=== PATIENT | male | born 1985 | race Caucasian/White ===

== ENCOUNTER → 2019-09-02 | Outpatient (REF) | payer OTHER ==
[~2019-09-02] MED LIST: CARA1TAB2 PO; CELE40TA PO; IRONTAB3 PO; PRIL40CA PO; VITATAB11 PO
[2019-09-02 17:57] LABS: BASO # 0.1 10^3/uL (0.0-0.2); BASO % 0.9 % (0.0-1.0); EOS # 0.4 10^3/uL (0.0-0.5); LYMPH # 2.4 10^3/uL (1.5-5.0); LYMPH % 17.4 % (24.0-44.0); MEAN CORPUSCULAR HEMOGLOBIN 17.8 pg (27.0-33.0); MEAN CORPUSCULAR HGB CONC 26.7 g/dl (32.0-36.5); MEAN CORPUSCULAR VOLUME 66.8 fl (80.0-96.0); MONO % 7.2 % (0.0-5.0); NEUTROPHILS # 9.8 10^3/uL (1.5-8.5); PLATELET COUNT, AUTOMATED 274 10^3/uL (150-450); RED BLOOD COUNT 4.49 10^6/uL (4.30-6.10); WHITE BLOOD COUNT 13.8 10^3/uL (4.0-10.0)
[2019-09-02 18:33] LABS: ALBUMIN 4.3 GM/DL (3.2-5.2); ALT/SGPT 18 U/L (12-78); BILIRUBIN,TOTAL 0.5 MG/DL (0.2-1.0); BLOOD UREA NITROGEN 18 MG/DL (7-18); CALCIUM LEVEL 8.9 MG/DL (8.5-10.1); CARBON DIOXIDE LEVEL 28 MEQ/L (21-32); CHLORIDE LEVEL 109 MEQ/L (98-107); CREATININE FOR GFR 0.75 MG/DL (0.70-1.30); FERRITIN 3 NG/ML (26-388); FOLATE 4.7 NG/ML; GLOMERULAR FILTRATION RATE > 60.0 (>60); GLUCOSE, FASTING 82 MG/DL (70-100); POTASSIUM SERUM 4.7 MEQ/L (3.5-5.1); SODIUM LEVEL 140 MEQ/L (136-145); TOTAL PROTEIN 7.1 GM/DL (6.4-8.2)
[2019-09-02 19:02] LABS: VITAMIN B12 LEVEL 663 PG/ML
== END ==
LOC: M SFHCLERA 14:15
PROVIDERS: ATTEND Nurse Practitioner Family
DX: Z98.84 Bariatric surgery status (principal)

== ENCOUNTER → 2019-09-10 | Outpatient (REF) | payer OTHER | LOC: M SFHCLERA 18:41 | PROVIDERS: ATTEND Physician Assistant | DX: R21 Rash and other nonspecific skin eruption (principal) ==

== ENCOUNTER 2019-09-15 07:32 | Inpatient (IN) | payer OTHER ==
[~2019-09-15] VITALS: Ht 172.7 cm; Wt 77.3 kg
[2019-09-15] MEDS ORDERED: ONDANSETRON 4MG/2ML VIAL (J2405) IV ONE (08:00)
[2019-09-15] MEDS ORDERED: NS 1,000 ML IV ONE ×2 (08:00→09:15)
[2019-09-15] MEDS ORDERED: VENL75CA47 PO (08:01)
[2019-09-15] MEDS ORDERED: BACT800T5 PO (08:01)
[2019-09-15] MEDS ORDERED: BUSP10TA PO (08:01)
[2019-09-15] MEDS ORDERED: VALA1TAB5 PO (08:01)
[2019-09-15] MEDS ORDERED: ISOVUE-370 76% 100ML VIAL (Q9967) As Ordered ONE (08:04)
[2019-09-15] MEDS: fentaNYL 100 MCG/2 ML INJECTION (J3010) IV PRN ×2 (08:14→09:24)
[2019-09-15 08:15] LABS: BASO # 0.1 10^3/uL (0.0-0.2); BASO % 1.1 % (0.0-1.0); EOS # 0.6 10^3/uL (0.0-0.5); EOS % 4.5 % (0.0-3.0); HEMATOCRIT 34.9 % (42.0-52.0); HEMOGLOBIN 9.1 g/dl (13.5-17.5); LYMPH # 3.3 10^3/uL (1.5-5.0); LYMPH % 26.6 % (24.0-44.0); MEAN CORPUSCULAR HEMOGLOBIN 17.4 pg (27.0-33.0); MEAN CORPUSCULAR HGB CONC 26.1 g/dl (32.0-36.5); MEAN CORPUSCULAR VOLUME 66.6 fl (80.0-96.0); MONO # 0.6 10^3/uL (0.0-0.8); MONO % 5.2 % (0.0-5.0); NEUTROPHILS # 7.6 10^3/uL (1.5-8.5); NEUTROPHILS % 62.3 % (36.0-66.0); PLATELET COUNT, AUTOMATED 293 10^3/uL (150-450); RED BLOOD COUNT 5.24 10^6/uL (4.30-6.10); WHITE BLOOD COUNT 12.2 10^3/uL (4.0-10.0)
[2019-09-15 08:28] LABS: INR 1.17; PROTHROMBIN TIME 14.7 SECONDS (11.8-14.0)
[2019-09-15 08:56] LABS: ALBUMIN 3.9 GM/DL (3.2-5.2); ALT/SGPT 20 U/L (12-78); BILIRUBIN,DIRECT < 0.1 MG/DL (0.0-0.2); BILIRUBIN,TOTAL 0.3 MG/DL (0.2-1.0); CK-MB VALUE MASS < 1.0 NG/ML (<3.6); CPK CREATINE PHOSPHOKINASE 71 U/L (39-308); LIPASE 177 U/L (73-393); MB/CK RELATIVE INDEX 1.41 (< OR =4); TOTAL PROTEIN 7.1 GM/DL (6.4-8.2); TROPONIN I < 0.02 NG/ML (< 0.10)
[2019-09-15] MEDS ORDERED: PIPERACILLIN/TAZOBACTAM SOD 4.5 GM in D5W MINI-BAG PLUS 50 ML IV ONE (09:15)
[2019-09-15] MEDS ORDERED: PANTOPRAZOLE 40MG INJ (PROTONIX) (C9113) IV ONE (09:15)
[2019-09-15] MEDS ORDERED: fentaNYL 100 MCG/2 ML INJECTION (J3010) IV PRN ×2 (09:30→14:45)
[2019-09-15] MEDS ORDERED: FERR240T PO (09:34)
[2019-09-15] MEDS ORDERED: LIDOCAINE 1% SDV INJ 30 ML VIAL As Ordered ONE (10:11)
[2019-09-15] MEDS ORDERED: BUPIVACAINE HCL 0.25% 30ML VIAL As Ordered ONE (10:11)
[2019-09-15] MEDS ORDERED: fentaNYL 250 MCG/5 ML INJECTION (J3010) As Ordered ONE (10:42)
[2019-09-15] MEDS ORDERED: LIDOCAINE 2% INJ 100 MG/5 ML SDV (FOR ANES.) As Ordered ONE ×2 (10:43→18:25)
[2019-09-15] MEDS ORDERED: propofoL 200 MG/20 ML VIAL As Ordered ONE (10:43)
[2019-09-15] MEDS ORDERED: MIDAZOLAM INJ 2 MG/2 ML VIAL (J2250) As Ordered ONE (10:43)
[2019-09-15] MEDS ORDERED: ROCURONIUM BROMIDE 50 MG/5 ML VIAL As Ordered ONE ×4 (10:43→18:25)
--- NOTE | 2019-09-15 12:07 | REP ---
REASON FOR EXAM: Dyspnea and chest pain. There are no priors. CONTRAST: 100 mL Isovue-370. There is excellent visualization of the pulmonary arterial vasculature. There are no focal filling defects present that would be considered consistent with pulmonary emboli. There is no mediastinal or hilar adenopathy. There no pleural or pericardial effusions. The imaged upper abdomen and imaged osseous structures are unremarkable. Evaluation of the lung gurrola shows no abnormal nodules, masses, or opacities. IMPRESSION: CT findings are within normal limits. Electronically Signed by Sagar Duran DO 09/15/2019 12:20 P
--- NOTE | 2019-09-15 12:16 | REP ---
REASON FOR EXAM: Lower abdominal pain. COMPARISON: None. CONTRAST: 100 mL Isovue-370. The patient is status post bariatric surgery. There are surgical clips in the gallbladder fossa from previous cholecystectomy. The liver is unremarkable. There are a few splenic cysts. The pancreas, adrenal glands, and kidneys are within normal limits. Multiple small bowel loops are seen with suggested thickened tolentino; however, no oral bowel preparatory contrast was administered prior to the exam, which significantly limits evaluation of the intestines. There is a tiny amount of fluid in the left paracolic gutter. There are a few tiny dots of free intraperitoneal air. There is no evidence of intestinal obstruction. CT pelvis: There is a small amount of free pelvic fluid. There is no mass or adenopathy. The osseous structures are within normal limits. IMPRESSION: 1. Exam is limited, as described above. 2. There is a tiny amount of free intraperitoneal air. A phone call was placed to Dr. Debra Milligan at the time of this dictation to discuss that finding. 3. There is a small amount of free fluid, as described above, of uncertain etiology. The patient is status post recent bariatric surgery, and it is possible that the aforementioned findings are at least in part secondary to that procedure. I have no history as to when the procedure was performed or where it was performed. 4. Other findings, as described above. Electronically Signed by Sagar Duran DO 09/15/2019 12:20 P
[2019-09-15] MEDS ORDERED: SUCCINYLCHOLINE 100 MG/5 ML SYRINGE (J0330) As Ordered ONE ×2 (12:30→18:25)
--- NOTE | 2019-09-15 12:30 | HPEPDOC ---
General Surgery H&P Date of Admission Sep 15, 2019 Attending Physician: MICHELLE DUNCAN MD History and Physical CHIEF COMPLAINT: abdominal pain HISTORY OF PRESENT ILLNESS: Patient presented himself to the ER with sudden onset of what initailly was periumbilical pain at about 7 am this morning which woke him up with nausea, no vomiting, diarrhea. While in the ER the pain moved to the epigastric area and chest. He has a remote history of laparoscopic gastric bypass in 2069 accompanying weight loss. He denies any subsequent problems with this. He has been maintaining his weight. He does smoke. He denies any epigastric pain or discomfort postprandially or anything that wakes him up in the middle of the night. He has no prior history of peptic ulcer disease nor is taking any ulcer prophylaxis medication. ALLERGIES: Please see below. HOME MEDICATIONS: Please see below. PAST MEDICAL HISTORY: 1. Iron deficiency anemia 2. Previous history of morbid obesity with sleep apnea all resolved after gastric bypass 3. Depression. PAST SURGICAL HISTORY: 1. Laparoscopic gastric bypass surgery in 2006 2. Laparoscopic cholecystectomy. PERSONAL/SOCIAL HISTORY: Reports smoking about half a pack a day, denies alcohol use or recreational drug use. REVIEW OF SYSTEMS: GENERAL: Denies chills, fatigue, fever, weight gain and weight loss. HEENT: Denies any vision problems, hearing problems, hoarseness. NECK: Denies any neck pain. CARDIOVASCULAR: Patient came in with complaint of both abdominal and chest discomfort. MUSCULOSKELETAL: Denies arthralgias, back pain and thrombophlebitis. SKIN: Denies rash. NEUROLOGIC: Denies headache, stroke and transient ischemic attack. PSYCHIATRIC: Reports history of depression. ENDOCRINE: Denies thyroid disease. HEMATOLOGY/ONCOLOGY: Denies any bleeding or clotting disorder. HEART: Denies any chest pains, palpitations, paroxysmal dyspnea, orthopnea. PULMONARY: Denies chronic cough, dyspnea and wheezing. GASTROINTESTINAL: See HPI. Patient's history is significant remotely for gastric bypass also has had prior history of probably anastomotic gastrojejunal ulcer bleeding didn't resolve itself though this did not require endoscopy. GENITOURINARY: Denies dysuria, frequency, hematuria and nocturia. ENDOCRINE: Denies polydipsia, polyphagia, polyuria, heat or cold intolerance. INFECTIOUS: Denies any recent upper respiratory tract infection, UTI, need for use of antibiotics. NUTRITION: Reports good appetite and her hemoglobin today inguinal by an implanted while was then identified with hemoglobin that Bridgette Gutierrez. He will all. PHYSICAL EXAMINATION: VITAL SIGNS: Please see below. GENERAL APPEARANCE: Patient seen at bedside, appears comfortable. Awake, alert, oriented. HEENT: Normocephalic, atraumatic. [place] palpebral conjunctivae. Anicteric sclerae. Lips moist. CHEST: No chest wall abnormalities. Normal respiratory motion/effort. NECK: Supple. No thyromegaly. No lymphadenopathies. LUNGS: Lung sounds are clear to auscultation bilaterally. No wheezing appre ciated. HEART: No chest wall abnormalities. Heart rate and rhythm are regular with no murmurs. ABDOMEN: Abdomen is obese, soft, slightly rounded. No hepatosplenomegaly. No umbilical or groin herniations, nondistended. No noticeable rebound or guarding. No grimacing with palpation. No rebound tenderness. No masses appreciated. SKIN: Warm, moist. EXTREMITIES: Extremities have no deformities. No edema identified. NEUROLOGICAL: Awake, alert, oriented ANCILLARIES: . LABORATORY DATA: Please see below. MICROBIOLOGY: Please see below. IMAGING: CT ABDOMEN AND PELVIS The liver is unremarkable. There are a few splenic cysts. The pancreas, adrenal glands, and kidneys are within normal limits. Multiple small bowel loops are seen with suggested thickened tolentino; however, no oral bowel preparatory contrast was administered prior to the exam, which significantly limits evaluation of the intestines. There is a tiny amount of fluid in the left paracolic gutter. There are a few tiny dots of free intraperitoneal air. There is no evidence of intestinal obstruction. IMPRESSION AND PLAN PERFORATED VISCUS. I suspect probably from acute gastrojejunal ulcer perforation but other possibil ities include appendicitis, diverticulitis, small bowel perforation as such. He has generalized tenderness. He has been advised of need for abdominal exploration. will proceed with diagnostic laparoscopy, and repair resected depending on the nature of the perforation. I have discussed with him different scenarios including ulcer perforation, appendicitis, diverticulitis with colon perforation. He is receiving a dose of Zosyn in the emergency room. He seems to be adequately hydrated. We will bring him probably to the operating room as soon as it is available. Vital Signs Vital Signs Date Time Temp Pulse Resp B/P (MAP) Pulse Ox O2 Delivery O2 Flow Rate FiO2 3/15/20 11:20 98.8 09/15/19 11:16 16 118/57 (77) 09/15/19 11:04 84 97 09/15/19 10:36 Room Air Laboratory Data Labs 24H Laboratory Tests 2 09/15/19 07:54: Immature Granulocyte % (Auto) 0.3, Neutrophils (%) (Auto) 62.3, Lymphocytes (%) (Auto) 26.6, Monocytes (%) (Auto) 5.2H, Eosinophils (%) (Auto) 4.5H, Basophils (%) (Auto) 1.1H, Neutrophils # (Auto) 7.6, Lymphocytes # (Auto) 3.3, Monocytes # (Auto) 0.6, Eosinophils # (Auto) 0.6H, Basophils # (Auto) 0.1, Nucleated Red Blood Cells % (auto) 0.0, Prothrombin Time 14.7H, Prothromb Time International Ratio 1.17, Activated Partial Thromboplast Time 20.0L, Lactic Acid Level 2.0, Total Bilirubin 0.3, Direct Bilirubin < 0.1, Aspartate Amino Transf (AST/SGOT) 8, Alanine Aminotransferase (ALT/SGPT) 20, Alkaline Phosphatase 48, Total Creatine Kinase 71, Creatine Kinase MB < 1.0, Creatine Kinase MB Relative Index 1.41, Troponin I < 0.02, Total Protein 7.1, Albumin 3.9, Albumin/Globulin Ratio 1.22, Lipase 177 09/15/19 07:55: POC Glucose (Misc Panel) 161H, POC Sodium (Misc Panel) 140, POC Potassium (Misc Panel) 4.1, POC Chloride (Misc Panel) 107, POC Total CO2 (Misc Panel) 25.0, POC Blood Urea Nitrogen (Misc Panel 15, POC Ionized Calcium (Misc Panel) 4.6, POC Creatinine (Misc Panel) 0.9, POC Hematocrit (Misc Panel) 33.0L CBC/BMP Laboratory Tests 09/15/19 07:54 Microbiology Microbiology 09/15/19 Blood Culture, Received Pending 09/15/19 Blood Culture, Received Pending Home Medications Scheduled Amoxicillin/Potassium Clav (Augmentin 875-125 Tablet) 1 Each Tablet, 1 TAB PO BID Buspirone HCl (Buspirone HCl) 10 Mg Tablet, 10 MG PO TID, (Reported) Ferrous Gluconate (Ferrous Gluconate) 240 Mg Tablet, 240 MG PO DAILY, (Reported) Fluconazole (Diflucan) 100 Mg Tablet, 100 MG PO DAILY for yeast infection Pantoprazole Sodium (Protonix IV) 40 Mg Vial, 40 MG PO BID Sucralfate (Sucralfate) 1 Gm Tablet, 1 GM PO Q6H Venlafaxine HCl (Venlafaxine HCl ER) 75 Mg Cap.er.24h, 75 MG PO DAILY, (Reported) Scheduled PRN Oxycodone/Acetaminophen (Oxycodone-Acetaminophen 5-325) 1 Each Tablet, 1 TAB PO Q6H PRN for SEVERE PAIN (PS 8-10) Allergies Coded Allergies: No Known Drug Allergies (Verified Allergy, Unknown, 09/15/19) A-FIB/CHADSVASC A-FIB History Current/History of A-Fib/PAF?: No Current PO Anticoag Therapy: MICHELLE Alvarenga MD Sep 15, 2019 12:30
[2019-09-15] MEDS ORDERED: dexameTHASONE 4 MG/ML 1ML VIAL (J1100 PER 1MG) As Ordered ONE (12:31)
[2019-09-15] MEDS ORDERED: ONDANSETRON 4MG/2ML VIAL (J2405) As Ordered ONE ×2 (12:31→18:25)
[2019-09-15] MEDS ORDERED: SUGAMMADEX SODIUM 500 MG/5 ML VIAL (BRIDION) As Ordered ONE (13:03)
[2019-09-15] MEDS ORDERED: BUPIVACAINE HCL 0.25% 10ML VIAL As Ordered ONE (13:35)
[2019-09-15] MEDS ORDERED: BUPIVACAINE LIPOSOME/PF 1.3% 20ML VIAL (13.3MG/ML)(EXPAREL)(C9290 PER1MG) As Ordered ONE (13:35)
--- NOTE | 2019-09-15 13:42 | REP ---
REASON: Chest pain. PRIORS: None. FINDINGS: The technique utilized in obtaining the radiograph has magnified the cardiac silhouette and accentuated the interstitial markings. The superior mediastinal structures are midline. The cardiac silhouette is unremarkable in size, shape, and position. The diaphragmatic surfaces of the lungs are regular, and the costophrenic angles are clear. The pulmonary gurrola are clear. The imaged osseous structures are intact. IMPRESSION: There is no acute cardiopulmonary disease. Electronically Signed by Sagar Duran DO 09/15/2019 01:52 P
[2019-09-15] MEDS ORDERED: ACETAMINOPHEN TAB 650MG DOSE (2X325MG) PO PRN (14:30)
[2019-09-15] MEDS ORDERED: MORPHINE 4 MG/ML 1ML VIAL/SYRINGE (J2270) IV PRN (14:30)
[2019-09-15] MEDS ORDERED: ONDANSETRON 4MG/2ML VIAL (J2405) IV PRN ×2 (14:30→14:45)
[2019-09-15] MEDS ORDERED: PERCOCET 5MG/325MG TAB PO PRN (14:30)
[2019-09-15] MEDS ORDERED: oxyCODONE 5MG TAB PO PRN (14:45)
[2019-09-15] MEDS ORDERED: LR 1,000 ML IV SCH (14:45)
[2019-09-15 15:20] VITALS: BP 130/74
[2019-09-15 15:50] VITALS: BP 130/74
[2019-09-15] MEDS: PIPERACILLIN/TAZOBACTAM SOD 3.375 GM in D5W MINI-BAG PLUS 50 ML IV SCH ×2 (15:57→21:23)
[2019-09-15] MEDS: LR 1,000 ML IV SCH ×2 (15:57→22:03)
[2019-09-15] MEDS: busPIRone 10 MG TAB PO SCH ×2 (15:58→21:22)
[2019-09-15] MEDS ORDERED: FLUCONAZOLE 200 MG in IV 1 EA IV ONE (16:00)
[2019-09-15 16:50] VITALS: BP 125/70
[2019-09-15] MEDS: SUCRALFATE 1 GM TAB PO SCH (17:19)
[2019-09-15] MEDS: PERCOCET 5MG/325MG TAB PO PRN ×2 (17:20→22:03)
[2019-09-15 17:50] VITALS: BP 122/69
[2019-09-15] MEDS ORDERED: fentaNYL 100 MCG/2 ML INJECTION (J3010) As Ordered ONE (18:25)
[2019-09-15 18:50] VITALS: BP 122/66
[2019-09-15] MEDS: SENOKOT S TAB PO SCH (21:22)
[2019-09-15] MEDS: PANTOPRAZOLE 40MG INJ (PROTONIX) (C9113) IV SCH (21:22)
[2019-09-15 22:00] VITALS: BP 120/66
[2019-09-16] MEDS: SUCRALFATE 1 GM TAB PO SCH ×4 (00:23→18:14)
[2019-09-16 02:00] VITALS: BP 114/66
[2019-09-16] MEDS: PIPERACILLIN/TAZOBACTAM SOD 3.375 GM in D5W MINI-BAG PLUS 50 ML IV SCH ×4 (02:48→20:22)
[2019-09-16] MEDS: KETOROLAC 30 MG/ML VIAL (J1885) IV PRN ×2 (05:49→18:58)
[2019-09-16 06:00] VITALS: BP 110/63
--- NOTE | 2019-09-16 06:25 | ROOPDOC ---
[facility] Report Of Operation Report of Operation DATE OF PROCEDURE: 09/15/19 PREPROCEDURE DIAGNOSES: perforated viscus. POSTPROCEDURE DIAGNOSES: perforated gastrojejunal ulcer, bariatric surgery status. PROCEDURE: Robotic assisted laparoscopic omental patch repair of gastrojejunal ulcer perforation. SURGEON: José Antonio Lozada MD INGOT CASTER: ANESTHESIA: General Anesthesia. ESTIMATED BLOOD LOSS: Approximately 20 mL. COMPLICATIONS: none DRAINS: 19 Charles Drain. REMARKS: 34 M 13 years removed from laparoscopic gastric bypass, also prior history of bleeding gastrojejunal ulcer presents to ED with acute onset of abdominal pain and found to have pneumoperitoneum on CT. PROCEDURE NOTE: chronic scarring involving the gastrojejunal limb to the underside of the left lobe of the liver. Remnant stomach seems mildly distended with some scarring to the gastrojejunal limb, suspect possiblity of gastro- gastric fistula. I dissected around this but was not able to completely dissect free the two structures.. DESCRIPTION OF PROCEDURE: . Patient was given a dose of Zosyn 3.375 g IV during stain emergency room. He was promptly brought to the operating room, placed supine in the table. TEDs and Compression boots were placed in both lower extremities were DVT prophylaxis. General endotracheal anesthesia was started. A Dowling catheter was placed for urine output monitoring.We paused for a surgical timeout using both pre-incision safety checklist to verify correct patient, procedure site and additional clinical information prior to beginning the procedure I started with supraumbilical port site entry roughly about 5 cm above the umbilicus a Veress needle was inserted and a controlled fashion. Intra-abdominal placement was confirmed with saline drop technique. CO2 insufflation started to pressure 15 mmHg. Using the same incision an 8 mm robotic trocar was placed und er direct vision of a 5 mm laparoscope. Insertion site was inspected for injury and no evidence of injury found. On initial diagnostic laparoscopy there was some moderate amounts of yellowish murky fluid surrounding the spleen as well as around the liver. There was patchy fibrinous purulent deposition on the wall of the small bowel just underneath the left liver edge and this was adhered to the liver partially. This appears chronic. This looks to be the jejunal portion of the gastrojejunostomy and the punctate roughly about 4-5 mm hole with whitish discharge is visible. An 8 mm port was placed over the left midclavicular line along the same line as the first port and another one along the right midclavicular line. A 5 mm port was placed over the right anterior axillary line where we set this up for the liver retractor. The robotic tower was maneuvered into place and the trochars duct onto the robot. I primarily used a laparoscopic scissors connected to monopolar cautery and a forced bipolar forceps connected to the bipolar cord. The scissors were exchanged for a Nahum-Cut needle log driver with the suturing. I then scrubbed in to control of the robotic instruments and camera at the surgeon's console. The visible inflammatory fluid/ascites was suctioned off. A portion of it was safe for microbiology. The abdomen was liberally irrigated. As mentioned there was a good amount of chronic-appearing inflammatory adhesions of the underside of the left lobe of the liver towards the or close to the gastrojejunostomy portion of the gastric bypass. I worked on this with the scissors dividing this inflammatory adhesions to fully define the extent of the perforation likewise look for possibility that there is a gastro-gastric fistula just 1 or most common causes of gastrojejunal ulcer and post gastric bypass patient. There is good amount of adhesion on the crystal's all of the the gastrojejunostomy porti on. This was all freed up though I did not see any obvious fistula from the jcak- stomach to the old stomach. Likewise I was able to visualize the course of the first portion of the duodenum and there is no evidence of inflammation at this area. I also spent some time looking towards the right lower quadrant and was able to visualize the appendix is free of inflammation. I also looked in the pelvis and was able to visualize the course of the sigmoid colon. Small diverticula were visualized with no evidence of perforation. The bowels are mildly distended possibly from ileus from the ongoing inflammation. There is an available healthy omental portion from the old stomach that this accessible for a patch area after cleaning up the serosa surrounding the perforation which I estimate is about 4 at most 5 mm I placed 3 strands of 2-0 Vicryl stitch transversely through the area of the perforation. This is located at the middle portion of the crystal's hook. The patch was placed and held in place and the sutures were tied off. I then tested this by irrigating looking for bubbling and once satisfied I again liberally ill irrigated and suctioned off with particular attention towards the left upper quadrant area around the spleen. I then left a 19 Charles drain coming off through my leftmost quadrant port coursing just above and close to the gastrojejunal perforation. After doing so the abdomen was deflated. The drain was secured to the skin with 2-0 silk. The 38 mm port site incisions were closed with 4-0 Monocryl in subcuticular fashion. Dermabond was used for postoperative dressing. Patient tolerated the procedure well. He was hemodynamically stable throughout the procedure. He was successfully awakened, extubated. His Dowling catheter was removed. We did not use a nasogastric tube in the procedure. He was brought to the recovery room in stable condition. JOSÉ ANTONIO LOZADA MD Sep 16, 2019 06:25
[2019-09-16 07:06] LABS: BASO % 0.1 % (0.0-1.0); EOS % 0.2 % (0.0-3.0); HEMATOCRIT 29.4 % (42.0-52.0); LYMPH # 1.9 10^3/uL (1.5-5.0); LYMPH % 8.7 % (24.0-44.0); MEAN CORPUSCULAR HEMOGLOBIN 17.9 pg (27.0-33.0); MEAN CORPUSCULAR HGB CONC 27.2 g/dl (32.0-36.5); MEAN CORPUSCULAR VOLUME 65.6 fl (80.0-96.0); MONO # 1.1 10^3/uL (0.0-0.8); MONO % 5.2 % (0.0-5.0); NEUTROPHILS # 18.7 10^3/uL (1.5-8.5); NEUTROPHILS % 85.1 % (36.0-66.0); PLATELET COUNT, AUTOMATED 181 10^3/uL (150-450); RED BLOOD COUNT 4.48 10^6/uL (4.30-6.10); WHITE BLOOD COUNT 21.9 10^3/uL (4.0-10.0)
--- NOTE | 2019-09-16 07:22 | ECGEPIP ---
[facility] - ED Test Date: 2019-09-15 Pat Name: MIKEY RUSSELL Department: Room: - Gender: Male Sales And Service Technician: eunice : [id number] Requested By: Debra Jones Order Number: [id number] Reading MD: Miya Mckinley Measurements Intervals [place] Rate: 51 P: 50 [place]: 124 QRS: 34 QRSD: 97 T: 54 QT: 460 QTc: 427 Interpretive Statements SINUS BRADYCARDIA POSSIBLE RIGHT VENTRICULAR CONDUCTION DELAY NO PRIOR Electronically Signed on 09-16-2019 7:22:17 EDT by Miya Mckinley
[2019-09-16 07:23] LABS: BLOOD UREA NITROGEN 12 MG/DL (7-18); CALCIUM LEVEL 8.5 MG/DL (8.5-10.1); CARBON DIOXIDE LEVEL 25 MEQ/L (21-32); CHLORIDE LEVEL 107 MEQ/L (98-107); CREATININE FOR GFR 0.85 MG/DL (0.70-1.30); GLOMERULAR FILTRATION RATE > 60.0 (>60); GLUCOSE, FASTING 95 MG/DL (70-100); POTASSIUM SERUM 3.9 MEQ/L (3.5-5.1); SODIUM LEVEL 137 MEQ/L (136-145)
[2019-09-16] MEDS: PANTOPRAZOLE 40MG INJ (PROTONIX) (C9113) IV SCH ×2 (08:37→20:20)
[2019-09-16] MEDS: VENLAFAXINE **XR** 75MG CAPSULE PO SCH (08:38)
[2019-09-16] MEDS: SENOKOT S TAB PO SCH ×2 (08:38→20:20)
[2019-09-16] MEDS: busPIRone 10 MG TAB PO SCH ×3 (08:38→20:20)
[2019-09-16] MEDS: ENOXAPARIN 40 MG/0.4 ML SYRINGE (J1650) SC SCH (08:38)
[2019-09-16] MEDS: LR 1,000 ML IV SCH ×2 (11:01→20:20)
--- NOTE | 2019-09-16 11:05 | IPNPDOC ---
Subjective General Date/Time Seen The patient was seen on 09/16/19 at 11:04. Subject Chief Complaint/History The patient is a 34-year-old male admitted with a reason for visit of Perforated Viscus. Is taken to the OR yesterday and was found to have perforation at the gastrojejunostomy site of his previous gastric bypass. He reports he feels markedly better today. Reports some mild residual discomfort along the epiga stric and left upper quadrant area but able to breathe better. He has been afebrile postoperatively. Current Medications Current Medications Current Medications Medications (Trade) Dose Ordered Sig/Prosper Route PRN Reason Start Time Stop Time Status Last Admin Dose Admin Acetaminophen (Tylenol Tab) 650 mg Q4HP PRN PO MILD PAIN or TEMP > 101 09/15/19 14:30 09/15/19 18:03 Buspirone HCl (Buspar) 10 mg TID PO 09/15/19 16:00 09/16/19 08:38 Enoxaparin Sodium (Lovenox) 40 mg DAILY SC 09/16/19 09:00 09/16/19 08:38 Fentanyl Citrate (Sublimaze) 25 mcg Q30M PRN IV MODERATE/SEVERE PAIN (PS 5-10) 09/15/19 08:00 09/15/19 09:26 DC 09/15/19 09:24 Fentanyl Citrate (Sublimaze) 25 mcg Q5MP PRN IV PAIN LEVEL 5-10 09/15/19 14:45 09/16/19 15:45 Cancel Fentanyl Citrate (Sublimaze) 50 mcg Q30M PRN IV SEVERE PAIN (PS 8-10) 09/15/19 09:30 09/15/19 14:37 DC 09/15/19 10:10 Fluconazole 100 mg/IV Miscellaneous Supplies 50 ml @ 50 mls/hr Q24H IV 09/16/19 16:00 Home Med (Med Rec Complete!) ASDIRECTED XX 09/15/19 09:45 09/15/19 09:36 DC Ketorolac Tromethamine (ToRADol) 15 mg Q12HP PRN IV MILD/MODERATE PAIN (PS 1-7) 09/15/19 14:30 09/20/19 14:29 09/16/19 05:49 Lactated Ringer's 1,000 ml @ 100 mls/hr Q10H IV 09/15/19 14:45 09/15/19 19:21 DC Lactated Ringer's 1,000 ml @ 100 mls/hr Q10H IV 09/15/19 15:00 09/16/19 11:01 Morphine Sulfate (Morphine Sulfate Inj) 4 mg Q4H PRN IV SEVERE PAIN (PS 8-10) 09/15/19 14:30 09/15/19 21:23 Ondansetron HCl (ZOFRAN INJection) 4 mg Q4HP PRN IV NAUSEA OR VOMITING 09/15/19 14:45 09/16/19 15:45 Cancel Ondansetron HCl (ZOFRAN INJection) 4 mg Q6HP PRN IV NAUSEA OR VOMITING 09/15/19 14:30 Oxycodone HCl (Roxicodone, Oxyir) 5 mg ASDIRECTED PRN PO PAIN LEVEL 1-4 09/15/19 14:45 09/16/19 15:45 Cancel Oxycodone/ Acetaminophen (Percocet 5mg/ 325mg Tablet) 1 tab Q4H PRN PO MILD/MODERATE PAIN (PS 1-7) 09/15/19 14:30 09/15/19 22:03 Oxycodone/ Acetaminophen (Percocet 5mg/ 325mg Tablet) 2 tab Q6H PRN PO SEVERE PAIN (PS 8-10) 09/15/19 14:30 Pantoprazole Sodium (Protonix) 40 mg BID IV 09/15/19 21:00 09/16/19 08:37 Piperacillin Sod/ Tazobactam Sod 3.375 gm/Dextrose 50 ml @ 50 mls/hr Q6H IV 09/15/19 15:00 09/16/19 08:38 Senna/Docusate Sodium (Senokot S) 1 tab BID PO 09/15/19 21:00 09/16/19 08:38 Sucralfate (Carafate) 1 gm Q6H PO 09/15/19 18:00 09/16/19 11:01 Venlafaxine HCl (Effexor Xr) 75 mg DAILY PO 09/16/19 09:00 09/16/19 08:38 Allergies Coded Allergies: No Known Drug Allergies (Verified Allergy, Unknown, 09/15/19) Objective Physical Examination Examination GENERAL APPEARANCE: Patient looks more comfortable than he was yesterday preoperatively. SKIN: Warm and dry. HEENT: Normocephalic, atraumatic. [place] palpebral conjunctiva, anicteric sclerae. Lips and mucosa appear moist. NECK: Supple, no thyromegaly. No obvious jugular venous distention. LUNGS: Clear to auscultation bilaterally. No wheezing appreciated. HEART: No chest wall abnormalities. Regular rate and rhythm with no murmurs appreciated. ABDOMEN: Abdomen is minimally distended, soft, Charles drain showing some slight murky serous fluid in the bulb. Mild tenderness over the epigastric area no rebound or guarding. EXTREMITIES: Extremities have no deformities. No edema identified. Vital Signs Vital Signs Date Time Temp Pulse Resp B/P (MAP) Pulse Ox O2 Delivery O2 Flow Rate FiO2 09/16/19 06:00 97.8 77 16 110/63 (79) 99 Room Air 09/15/19 18:50 2.0 I&Os l I&O- Last 24 Hours up to 6 AM 09/16/19 05:59 Intake Total 3941 ml Output Total 1051 ml Balance 2890 ml Laboratory Data Labs 24H Laboratory Tests 2 09/16/19 06:25: Immature Granulocyte % (Auto) 0.7, Neutrophils (%) (Auto) 85.1H, Lymphocytes (%) (Auto) 8.7L, Monocytes (%) (Auto) 5.2H, Eosinophils (%) (Auto) 0.2, Basophils (%) (Auto) 0.1, Neutrophils # (Auto) 18.7H, Lymphocytes # (Auto) 1.9, Monocytes # (Auto) 1.1H, Eosinophils # (Auto) 0.0, Basophils # (Auto) 0.0, Nucleated Red Blood Cells % (auto) 0.0, Anion Gap 5L, Glomerular Filtration Rate > 60.0, Calcium Level 8.5 CBC/BMP Laboratory Tests 09/16/19 06:25 Microbiology Microbiology 09/15/19 Blood Culture - Preliminary, Resulted No growth after 24 hours . All specim... 09/15/19 Blood Culture - Preliminary, Resulted No growth after 24 hours . All specim... Impression POD1 Laparoscopic omental patch repair of gastrojejunal ulcer perforation bariatric surgery status Cont abx npo ambulate hallways incentive spirometer ugis tomorrow Plan / VTE VTE Prophylaxis Ordered?: Yes Plan / Urinary Catheter Urinary Catheter: D/C MICHELLE Dejesus MD Sep 16, 2019 11:05
[2019-09-16 12:30] VITALS: BP 126/58
[2019-09-16 16:30] VITALS: BP 118/65
[2019-09-16] MEDS: FLUCONAZOLE 100 MG in IV 1 EA IV SCH (17:04)
[2019-09-16 20:00] VITALS: BP 111/58
[2019-09-17] VITALS (15 sets, daily range): BP systolic 107–127; BP diastolic 55–76
[2019-09-17] MEDS: PIPERACILLIN/TAZOBACTAM SOD 3.375 GM in D5W MINI-BAG PLUS 50 ML IV SCH ×4 (03:29→21:40)
[2019-09-17] MEDS: SUCRALFATE 1 GM TAB PO SCH ×5 (05:16→23:24)
[2019-09-17 07:10] LABS: BASO % 0.4 % (0.0-1.0); EOS # 0.3 10^3/uL (0.0-0.5); EOS % 2.9 % (0.0-3.0); HEMATOCRIT 24.6 % (42.0-52.0); LYMPH # 1.2 10^3/uL (1.5-5.0); LYMPH % 11.3 % (24.0-44.0); MEAN CORPUSCULAR HEMOGLOBIN 17.6 pg (27.0-33.0); MEAN CORPUSCULAR HGB CONC 26.8 g/dl (32.0-36.5); MEAN CORPUSCULAR VOLUME 65.4 fl (80.0-96.0); MONO # 0.7 10^3/uL (0.0-0.8); NEUTROPHILS # 8.2 10^3/uL (1.5-8.5); PLATELET COUNT, AUTOMATED 121 10^3/uL (150-450); RED BLOOD COUNT 3.76 10^6/uL (4.30-6.10); WHITE BLOOD COUNT 10.5 10^3/uL (4.0-10.0)
[2019-09-17 07:11] LABS: HEMOGLOBIN 6.6 g/dl (13.5-17.5)
[2019-09-17 07:30] LABS: BLOOD UREA NITROGEN 11 MG/DL (7-18); CALCIUM LEVEL 8.2 MG/DL (8.5-10.1); CARBON DIOXIDE LEVEL 28 MEQ/L (21-32); CHLORIDE LEVEL 108 MEQ/L (98-107); GLOMERULAR FILTRATION RATE > 60.0 (>60); GLUCOSE, FASTING 89 MG/DL (70-100); POTASSIUM SERUM 3.6 MEQ/L (3.5-5.1); SODIUM LEVEL 140 MEQ/L (136-145)
[2019-09-17 07:52] LABS: HEMATOCRIT 24.8 % (42.0-52.0)
[2019-09-17 07:55] LABS: HEMOGLOBIN 6.7 g/dl (13.5-17.5)
[2019-09-17] MEDS: SENOKOT S TAB PO SCH ×2 (08:35→21:40)
[2019-09-17] MEDS: busPIRone 10 MG TAB PO SCH ×3 (08:35→21:40)
[2019-09-17] MEDS: PANTOPRAZOLE 40MG INJ (PROTONIX) (C9113) IV SCH ×2 (08:35→21:40)
[2019-09-17] MEDS: LR 1,000 ML IV SCH (08:52)
[2019-09-17] MEDS: ENOXAPARIN 40 MG/0.4 ML SYRINGE (J1650) SC SCH (08:53)
[2019-09-17] MEDS: VENLAFAXINE **XR** 75MG CAPSULE PO SCH (09:09)
--- NOTE | 2019-09-17 10:07 | IPNPDOC ---
Text Note Date of Service The patient was seen on 09/16/19. NOTE Patient had acutely perforated gastrojejunal ulcer that was repaired yesterday laparoscopically. He reports feeling much better. Denies any nausea. He has been hemodynamically stable postoperatively. Vital signs were to pass 24-hour shows he is afebrile. Pulse rate in the 80s to low 90s. Blood pressures also within normal. His sats are 9899% at room air. On exam he looks comfortable Lung sounds are clear to auscultation bilaterally with no wheezing Rate and rhythm are regular with no murmurs. Abdomen looks minimally distended slightly tympanitic to percussion. His port sites are covered with Dermabond without any drainage. He has 1 drain that has some mildly cloudy-appearing serous sanguinous drainage. This drained 45 mL's operative past 20 hours. Impression and plan He is postop day 1 robotic-assisted laparoscopic repair of gastrojejunal ulcer perforation Gastric bypass status remotely done 13 years ago I explained to him the operative findings of perforation at the gastrojejunal anastomosis from his gastric bypass which was repaired with an omental patch. I also noted some mild distention of the remnant stomach which was adhered closely to the jejunal limb which may have predispose him to a gastro-gastric fistula which is one of the known causes for recurrent ulcerations in the gastrojejunal limb. They try to dissect this point stopped as might do more damage. We will know more within the upper GI series that I have scheduled for tomorrow. For now continue with IV antibiotics, IV Protonix and Carafate for the ulcer. I encouraged him to ambulate the hallways. VS,Joselyn, I+O VS, Joselyn, I+O Laboratory Tests 09/17/19 06:47 09/17/19 07:44 Vital Signs Date Time Temp Pulse Resp B/P (MAP) Pulse Ox O2 Delivery O2 Flow Rate FiO2 09/17/19 09:45 99.5 64 63 118/ 97 Room Air 09/15/19 18:50 2.0 I&O- Last 24 Hours up to 6 AM 09/17/19 06:00 Intake Total 2390 ml Output Total 1420 ml Balance 970 ml MICHELLE DUNCAN MD Sep 17, 2019 10:07
[2019-09-17] MEDS: FLUCONAZOLE 100 MG in IV 1 EA IV SCH (16:44)
[2019-09-18] VITALS: BP 124/67
[2019-09-18] MEDS: LR 1,000 ML IV SCH ×2 (02:00→14:54)
[2019-09-18 04:00] VITALS: BP 109/65
[2019-09-18] MEDS: PIPERACILLIN/TAZOBACTAM SOD 3.375 GM in D5W MINI-BAG PLUS 50 ML IV SCH ×4 (04:00→21:10)
[2019-09-18] MEDS: SUCRALFATE 1 GM TAB PO SCH ×4 (04:00→23:48)
[2019-09-18 07:16] LABS: BLOOD UREA NITROGEN 7 MG/DL (7-18); CALCIUM LEVEL 8.4 MG/DL (8.5-10.1); CARBON DIOXIDE LEVEL 26 MEQ/L (21-32); CHLORIDE LEVEL 111 MEQ/L (98-107); CREATININE FOR GFR 0.77 MG/DL (0.70-1.30); GLOMERULAR FILTRATION RATE > 60.0 (>60); GLUCOSE, FASTING 85 MG/DL (70-100); POTASSIUM SERUM 3.5 MEQ/L (3.5-5.1); SODIUM LEVEL 142 MEQ/L (136-145)
[2019-09-18 07:35] LABS: BASO # 0.1 10^3/uL (0.0-0.2); BASO % 0.6 % (0.0-1.0); EOS # 0.5 10^3/uL (0.0-0.5); EOS % 5.7 % (0.0-3.0); HEMATOCRIT 28.8 % (42.0-52.0); HEMOGLOBIN 8.1 g/dl (13.5-17.5); LYMPH # 1.7 10^3/uL (1.5-5.0); LYMPH % 19.9 % (24.0-44.0); MEAN CORPUSCULAR HEMOGLOBIN 19.1 pg (27.0-33.0); MEAN CORPUSCULAR HGB CONC 28.1 g/dl (32.0-36.5); MEAN CORPUSCULAR VOLUME 67.8 fl (80.0-96.0); MONO # 0.7 10^3/uL (0.0-0.8); MONO % 7.9 % (0.0-5.0); NEUTROPHILS # 5.8 10^3/uL (1.5-8.5); NEUTROPHILS % 65.7 % (36.0-66.0); PLATELET COUNT, AUTOMATED 121 10^3/uL (150-450); RED BLOOD COUNT 4.25 10^6/uL (4.30-6.10); WHITE BLOOD COUNT 8.8 10^3/uL (4.0-10.0)
[2019-09-18 08:00] VITALS: BP 118/75
[2019-09-18] MEDS ORDERED: ISOVUE-300 61% 50ML VIAL (Q9967) As Ordered ONE (08:49)
[2019-09-18] MEDS: VENLAFAXINE **XR** 75MG CAPSULE PO SCH (09:52)
[2019-09-18] MEDS: SENOKOT S TAB PO SCH ×2 (09:52→21:00)
[2019-09-18] MEDS: PANTOPRAZOLE 40MG INJ (PROTONIX) (C9113) IV SCH ×2 (09:53→21:10)
[2019-09-18] MEDS: ENOXAPARIN 40 MG/0.4 ML SYRINGE (J1650) SC SCH (09:53)
[2019-09-18] MEDS: busPIRone 10 MG TAB PO SCH ×3 (11:27→21:10)
[2019-09-18 12:00] VITALS: BP 107/63
--- NOTE | 2019-09-18 12:23 | REP ---
Examination Requested: Upper G.I. Series With KUB Reason For Exam: Status post repair of gastroduodenal ulcer perforation Upper GI Air Contrast The procedure was performed by DIPAK Cao, under the direct supervision of Dr. Blake. The images were reviewed with Dr. Blake. The fixer supervisor film shows no organomegaly or pathological masses. The intestinal gas pattern appears normal. There are surgical bill in the right upper quadrant. There is a visible suture line from previous Frederick-en-Y surgery. There is a drain tube in place. There is residual free intraperitoneal air. Approximately 200 ml of a 50/50 solution containing Isovue 300 and water was given in the erect position as well as liquid barium in the prone oblique position in order to perform a double contrast upper GI examination. The oral and pharyngeal stages of deglutition were unremarkable. Esophageal transport is efficient and there is no esophagitis, stricture, or mucosal ring noted. There is no hiatal hernia. Gastroesophageal reflux was not visualized throughout the course of the exam. The stomach demonstrates postsurgical changes consistent with the patient's history of gastric bypass. There is free flow of contrast through the anastomosis. There is no evidence of extravasation. There is no evidence of stricture or obstruction. There is no evidence of gastritis, neoplasm, or ulcer disease. The visualized portion of the proximal small bowel appears normal in course and caliber. Impression: 1. Residual post operative intraperitoneal free air. 2. No extravasation or obstruction visualized. 0.3 minutes of fluoroscopy time was utilized for this procedure. Some fluoroscopic images are performed with last image hold technology. These images require no additional radiation. Reviewed by DIPAK San 09/18/2019 09:42 A Electronically Signed by Addy Blake MD 09/18/2019 12:14 P
[2019-09-18] MEDS: FLUCONAZOLE 100 MG in IV 1 EA IV SCH (15:53)
[2019-09-18 16:00] VITALS: BP 105/61
[2019-09-18 20:00] VITALS: BP 107/68
[2019-09-19 00:08] VITALS: BP 122/68
[2019-09-19] MEDS: PIPERACILLIN/TAZOBACTAM SOD 3.375 GM in D5W MINI-BAG PLUS 50 ML IV SCH ×2 (03:46→09:08)
[2019-09-19] MEDS: LR 1,000 ML IV SCH (03:47)
[2019-09-19 04:00] VITALS: BP 112/69
--- NOTE | 2019-09-19 04:35 | IPNPDOC ---
Subjective General Date/Time Seen The patient was seen on 09/18/19 Subject Chief Complaint/History The patient is a 34-year-old male admitted with a reason for visit of Perforated Viscus. Patient is POD3 after repair of acute gastrojejunal ulcer perforation. Feels better. He has been having diarrhea but not melanotic nor bloody. He is ambulating independently in the room. Current Medications Current Medications Current Medications Medications (Trade) Dose Ordered Sig/Prosper Route PRN Reason Start Time Stop Time Status Last Admin Dose Admin Acetaminophen (Tylenol Tab) 650 mg Q4HP PRN PO MILD PAIN or TEMP > 101 09/15/19 14:30 09/15/19 18:03 Buspirone HCl (Buspar) 10 mg TID PO 09/15/19 16:00 09/18/19 21:10 Enoxaparin Sodium (Lovenox) 40 mg DAILY SC 09/16/19 09:00 09/18/19 09:53 Fentanyl Citrate (Sublimaze) 25 mcg Q30M PRN IV MODERATE/SEVERE PAIN (PS 5-10) 09/15/19 08:00 09/15/19 09:26 DC 09/15/19 09:24 Fentanyl Citrate (Sublimaze) 25 mcg Q5MP PRN IV PAIN LEVEL 5-10 09/15/19 14:45 09/16/19 15:45 Cancel Fentanyl Citrate (Sublimaze) 50 mcg Q30M PRN IV SEVERE PAIN (PS 8-10) 09/15/19 09:30 09/15/19 14:37 DC 09/15/19 10:10 Fluconazole 100 mg/IV Miscellaneous Supplies 50 ml @ 50 mls/hr Q24H IV 09/16/19 16:00 09/18/19 15:53 Home Med (Med Rec Complete!) ASDIRECTED XX 09/15/19 09:45 09/15/19 09:36 DC Ketorolac Tromethamine (ToRADol) 15 mg Q12HP PRN IV MILD/MODERATE PAIN (PS 1-7) 09/15/19 14:30 09/20/19 14:29 09/16/19 18:58 Lactated Ringer's 1,000 ml @ 100 mls/hr Q10H IV 09/15/19 14:45 09/15/19 19:21 DC Lactated Ringer's 1,000 ml @ 100 mls/hr Q10H IV 09/15/19 15:00 09/19/19 03:47 Morphine Sulfate (Morphine Sulfate Inj) 4 mg Q4H PRN IV SEVERE PAIN (PS 8-10) 09/15/19 14:30 09/15/19 21:23 Ondansetron HCl (ZOFRAN INJection) 4 mg Q4HP PRN IV NAUSEA OR VOMITING 09/15/19 14:45 09/16/19 15:45 Cancel Ondansetron HCl (ZOFRAN INJection) 4 mg Q6HP PRN IV NAUSEA OR VOMITING 09/15/19 14:30 Oxycodone HCl (Roxicodone, Oxyir) 5 mg ASDIRECTED PRN PO PAIN LEVEL 1-4 09/15/19 14:45 09/16/19 15:45 Cancel Oxycodone/ Acetaminophen (Percocet 5mg/ 325mg Tablet) 1 tab Q4H PRN PO MILD/MODERATE PAIN (PS 1-7) 09/15/19 14:30 09/15/19 22:03 Oxycodone/ Acetaminophen (Percocet 5mg/ 325mg Tablet) 2 tab Q6H PRN PO SEVERE PAIN (PS 8-10) 09/15/19 14:30 09/16/19 11:05 Pantoprazole Sodium (Protonix) 40 mg BID IV 09/15/19 21:00 09/18/19 21:10 Piperacillin Sod/ Tazobactam Sod 3.375 gm/Dextrose 50 ml @ 50 mls/hr Q6H IV 09/15/19 15:00 09/19/19 03:46 Senna/Docusate Sodium (Senokot S) 1 tab BID PO 09/15/19 21:00 09/18/19 09:52 Sucralfate (Carafate) 1 gm Q6H PO 09/15/19 18:00 09/18/19 23:48 Venlafaxine HCl (Effexor Xr) 75 mg DAILY PO 09/16/19 09:00 09/18/19 09:52 Allergies Coded Allergies: No Known Drug Allergies (Verified Allergy, Unknown, 09/15/19) Objective Physical Examination Examination GENERAL APPEARANCE:looks comfortable. SKIN: warma and dry. NECK: no JV distention. LUNGS: Clear to auscultation bilaterally. No wheezing appreciated. HEART: No chest wall abnormalities. Regular rate and rhythm with no murmurs appreciated. ABDOMEN: Abdomen is relatively flat, minimally distended if any, soft, port sites are c/d/i. nontender on palpation. CANDIS drain minimal light serosanguenos. EXTREMITIES: no edema. Vital Signs Vital Signs Date Time Temp Pulse Resp B/P (MAP) Pulse Ox O2 Delivery O2 Flow Rate FiO2 09/19/19 00:08 98.9 56 18 122/68 (86) 99 Room Air 09/15/19 18:50 2.0 I&Os I&O- Last 24 Hours up to 6 AM 09/19/19 06:00 Intake Total 2330 ml Output Total 575 ml Balance 1755 ml Laboratory Data Labs 24H Laboratory Tests 2 09/18/19 06:32: Immature Granulocyte % (Auto) 0.2, Neutrophils (%) (Auto) 65.7, Lymphocytes (%) (Auto) 19.9L, Monocytes (%) (Auto) 7.9H, Eosinophils (%) (Auto) 5.7H, Basophils (%) (Auto) 0.6, Neutrophils # (Auto) 5.8, Lymphocytes # (Auto) 1.7, Monocytes # (Auto) 0.7, Eosinophils # (Auto) 0.5, Basophils # (Auto) 0.1, Nucleated Red Blood Cells % (auto) 0.0, Anion Gap 5L, Glomerular Filtration Rate > 60.0, Calcium Level 8.4L CBC/BMP Laboratory Tests 09/18/19 06:32 Microbiology Microbiology 09/15/19 Blood Culture - Preliminary, Resulted No Growth after 72 hours. All specime... 09/15/19 Blood Culture - Preliminary, Resulted No Growth after 72 hours. All specime... Impression POD3 omental patch repair of gastrojejunal ulcer perforation bariatric surgery status anemia post hemorrhagic Still not showing where he bled. His BMs are loose and nonbloody, drain is not bloody. Otherwise stable I will proceed with UGIS today and if no leak advance him to liquids continue with IV protonix, carafate and abx Plan / VTE VTE Prophylaxis Ordered?: Yes Plan / Urinary Catheter Urinary Catheter: D/C MICHELLE Dejesus MD Sep 19, 2019 04:35
[2019-09-19] MEDS: SUCRALFATE 1 GM TAB PO SCH ×2 (06:27→12:37)
[2019-09-19 06:55] LABS: BASO # 0.1 10^3/uL (0.0-0.2); BASO % 0.8 % (0.0-1.0); EOS # 0.6 10^3/uL (0.0-0.5); EOS % 7.1 % (0.0-3.0); HEMOGLOBIN 8.3 g/dl (13.5-17.5); LYMPH % 23.7 % (24.0-44.0); MEAN CORPUSCULAR HEMOGLOBIN 19.3 pg (27.0-33.0); MEAN CORPUSCULAR HGB CONC 28.6 g/dl (32.0-36.5); MEAN CORPUSCULAR VOLUME 67.4 fl (80.0-96.0); MONO # 0.6 10^3/uL (0.0-0.8); MONO % 6.6 % (0.0-5.0); NEUTROPHILS # 5.3 10^3/uL (1.5-8.5); NEUTROPHILS % 61.6 % (36.0-66.0); PLATELET COUNT, AUTOMATED 133 10^3/uL (150-450); WHITE BLOOD COUNT 8.6 10^3/uL (4.0-10.0)
[2019-09-19 07:22] LABS: BLOOD UREA NITROGEN 7 MG/DL (7-18); CALCIUM LEVEL 8.2 MG/DL (8.5-10.1); CARBON DIOXIDE LEVEL 28 MEQ/L (21-32); CHLORIDE LEVEL 111 MEQ/L (98-107); CREATININE FOR GFR 0.81 MG/DL (0.70-1.30); GLOMERULAR FILTRATION RATE > 60.0 (>60); GLUCOSE, FASTING 88 MG/DL (70-100); POTASSIUM SERUM 3.5 MEQ/L (3.5-5.1); SODIUM LEVEL 143 MEQ/L (136-145)
[2019-09-19 08:30] VITALS: BP 123/69
[2019-09-19] MEDS: SENOKOT S TAB PO SCH (09:00)
[2019-09-19] MEDS: VENLAFAXINE **XR** 75MG CAPSULE PO SCH (09:08)
[2019-09-19] MEDS: PANTOPRAZOLE 40MG INJ (PROTONIX) (C9113) IV SCH (09:08)
[2019-09-19] MEDS: busPIRone 10 MG TAB PO SCH (09:08)
[2019-09-19] MEDS: ENOXAPARIN 40 MG/0.4 ML SYRINGE (J1650) SC SCH (09:09)
[2019-09-19 12:00] VITALS: BP 118/72
[2019-09-19] MEDS ORDERED: AUGM875T28 PO (13:34)
[2019-09-19] MEDS ORDERED: FLUC10TA PO (13:34)
[2019-09-19] MEDS ORDERED: PROT40IN4 PO (13:34)
[2019-09-19] MEDS ORDERED: PERCOCET PO (13:35)
[2019-09-19] MEDS ORDERED: SUCR1TA PO (13:35)
--- NOTE | 2019-09-19 14:36 | DS.PDOC ---
Discharge Summary General Date of Admission Sep 15, 2019 at 10:30 Date of Discharge September 19, 2019 Attending Physician: MICHELLE DUNCAN MD Discharge Summary PROCEDURES PERFORMED DURING STAY: Robotic Assisted Laparoscopic Omental Patch Repair of Acute gastrojejunal ulcer perforation (09/15/19). ADMITTING DIAGNOSES: 1. Perforated Viscus 2. Bariatric Surgery Status. DISCHARGE DIAGNOSES: 1. Bariatric Surgery Status 2. Gastrojejunal ulcer with acute perforation 3. Postoperative anemia/acute blood loss anemia COMPLICATIONS/CHIEF COMPLAINT: Perforated Viscus. HISTORY OF PRESENT ILLNESS: Patient presented himself to the ER with sudden onset of what initailly was periumbilical pain at about 7 am this morning which woke him up with nausea, no vomiting, diarrhea. While in the ER the pain moved to the epigastric area and chest. He has a remote history of laparoscopic gastric bypass in 2069 accompanying weight loss. He denies any subsequent problems with this. He has been maintaining his weight. He does smoke. He denies any epigastric pain or discomfort postprandially or anything that wakes him up in the middle of the night. He has no prior history of peptic ulcer disease nor is taking any ulcer prophylaxis medication. HOSPITAL COURSE: Patient underwent laparoscopic exploration was found to have perforation at the gastrojejunostomy site from an ulcer. This was repaired with an omental patch. A Charles drain was left for postoperative monitoring. He remained hemodynamically stable. He did well postoperatively. The antibiotics were continued until microbiology was available. He was maintained nothing by mouth with an upper GI series was done at postop day 3 which did not show any extravasation. He was then started on clear liquids and gradually advanced to a soft diet which he tolerated. He was also noted postoperatively that he was gradually getting anem ic. The preoperative hemoglobin was low at 9.1. This dropped to 6.6 at postoperative day 2. For this he got transfused 2 units of packed red blood cells. His count remains stable at about 8.3 on the discharge. He is not symptomatic and is able to ambulate without any shortness of breath, lightheaded ness and he was also discharged on iron. DISCHARGE MEDICATIONS: Please see below. ALLERGIES: Please see below. PHYSICAL EXAMINATION ON DISCHARGE: VITAL SIGNS: Please see below. GENERAL: Comfortable HEENT: [place] palpebral conjunctiva anicteric sclerae NECK: Supple, no thyromegaly, no jugular venous distention CARDIOVASCULAR EXAMINATION: Regular heart rate and rhythm without murmurs RESPIRATORY EXAMINATION: Clear breath sounds auscultation bilaterally without wheezing. ABDOMINAL EXAMINATION: Soft, nondistended, nontender. Port site incisions are healing accordingly, clean dry and intact. Drain has been removed. Drain site is without any active drainage, erythema EXTREMITIES: No significant extremity edema SKIN: No skin rashes, no jaundice NEUROLOGICAL EXAMINATION: Awake, alert, oriented LABORATORY DATA: Please see below. IMAGING: CT scan abdomen and pelvis, CT of the chest, upper GI series PROGNOSIS: Good ACTIVITY: Light activity 2 weeks. DIET: Soft diet DISCHARGE PLAN: Patient is discharged home on Augmentin for a 14 day course as well as Diflucan and on 40 mg Protonix twice a day and sucralfate 1 g every 6 hours. He'll follow-up with me in 2 weeks' time DISPOSITION: . DISCHARGE INSTRUCTIONS: 1. As above.. DISCHARGE CONDITION: Stable. TIME SPENT ON DISCHARGE: Greater than 30 minutes. Vital Signs/I&Os Vital Signs Date Time Temp Pulse Resp B/P (MAP) Pulse Ox O2 Delivery O2 Flow Rate FiO2 09/19/19 12:00 98.2 60 18 118/72 (87) 99 Room Air 09/15/19 18:50 2.0 I&O- Last 24 Hours up to 6 AM 09/19/19 06:00 Intake Total 3480 ml Output Total 635 ml Balance 2845 ml Laboratory Data Labs 24H Laboratory Tests 2 09/19/19 06:34: Immature Granulocyte % (Auto) 0.2, Neutrophils (%) (Auto) 61.6, Lymphocytes (%) (Auto) 23.7L, Monocytes (%) (Auto) 6.6H, Eosinophils (%) (Auto) 7.1H, Basophils (%) (Auto) 0.8, Neutrophils # (Auto) 5.3, Lymphocytes # (Auto) 2.0, Monocytes # (Auto) 0.6, Eosinophils # (Auto) 0.6H, Basophils # (Auto) 0.1, Nucleated Red Blood Cells % (auto) 0.0, Anion Gap 4L, Glomerular Filtration Rate > 60.0, Calcium Level 8.2L CBC/BMP Laboratory Tests 09/19/19 06:34 Microbiology Microbiology 09/15/19 Blood Culture - Preliminary, Resulted No Growth after 72 hours. All specime... 09/15/19 Blood Culture - Preliminary, Resulted No Growth after 72 hours. All specime... Discharge Medications Scheduled Amoxicillin/Potassium Clav (Augmentin 875-125 Tablet) 1 Each Tablet, 1 TAB PO BID Buspirone HCl (Buspirone HCl) 10 Mg Tablet, 10 MG PO TID, (Reported) Ferrous Gluconate (Ferrous Gluconate) 240 Mg Tablet, 240 MG PO DAILY, (Reported) Fluconazole (Diflucan) 100 Mg Tablet, 100 MG PO DAILY for yeast infection Pantoprazole Sodium (Protonix IV) 40 Mg Vial, 40 MG PO BID Sucralfate (Sucralfate) 1 Gm Tablet, 1 GM PO Q6H Venlafaxine HCl (Venlafaxine HCl ER) 75 Mg Cap.er.24h, 75 MG PO DAILY, (Reported) Scheduled PRN Oxycodone/Acetaminophen (Oxycodone-Acetaminophen 5-325) 1 Each Tablet, 1 TAB PO Q6H PRN for SEVERE PAIN (PS 8-10) Allergies Coded Allergies: No Known Drug Allergies (Verified Allergy, Unknown, 09/15/19) MICHELLE DUNCAN MD Sep 19, 2019 14:36
== END 2019-09-19 15:50 | disposition home or self-care (01) | DRG 223 ==
LOC: M ED 07:32 → M ED INP 10:30 → M MS5PR 15:07 → M PED 09-16 12:30
PROVIDERS: ADMIT Surgery; ATTEND Surgery
PROC: 0DUA47Z Supplement Jejunum with Autologous Tissue Substitute, Percutaneous Endoscopic Approach (ICD-10-PCS; principal; 2019-09-15 09:34)
DX: K28.1 Acute gastrojejunal ulcer with perforation (principal); D62 Acute posthemorrhagic anemia; K56.7 Ileus, unspecified; F32.9 Major depressive disorder, single episode, unspecified; F17.200 Nicotine dependence, unspecified, uncomplicated; D50.9 Iron deficiency anemia, unspecified; K57.30 Diverticulosis of large intestine without perforation or abscess without bleeding; R19.7 Diarrhea, unspecified; Z98.84 Bariatric surgery status; Z90.49 Acquired absence of other specified parts of digestive tract; Z79.899 Other long term (current) drug therapy

== ENCOUNTER → 2019-11-04 | Outpatient (CLI) | payer OTHER ==
[~2019-11-04] MED LIST changes: +AUGM875T28 PO; +BACT800T5 PO; +BUSP10TA PO; +FERR240T PO; +FLUC10TA PO; +PERCOCET PO; +PROT40IN4 PO; +SUCR1TA PO; +VALA1TAB5 PO; +VENL75CA47 PO
[2019-11-04 13:38] LABS: BASO # 0.1 10^3/uL (0.0-0.2); BASO % 0.6 % (0.0-1.0); EOS # 0.3 10^3/uL (0.0-0.5); EOS % 2.2 % (0.0-3.0); HEMATOCRIT 41.3 % (42.0-52.0); LYMPH # 2.4 10^3/uL (1.5-5.0); LYMPH % 20.7 % (24.0-44.0); MEAN CORPUSCULAR HEMOGLOBIN 21.4 pg (27.0-33.0); MEAN CORPUSCULAR HGB CONC 29.1 g/dl (32.0-36.5); MEAN CORPUSCULAR VOLUME 73.6 fl (80.0-96.0); MONO # 0.8 10^3/uL (0.0-0.8); MONO % 6.8 % (0.0-5.0); NEUTROPHILS % 69.5 % (36.0-66.0); PLATELET COUNT, AUTOMATED 257 10^3/uL (150-450); RED BLOOD COUNT 5.61 10^6/uL (4.30-6.10); WHITE BLOOD COUNT 11.5 10^3/uL (4.0-10.0)
[2019-11-04 14:07] LABS: PERCENT SATURATION 6.3 % (19.7-50.0)
== END ==
LOC: M LAB 13:09
PROVIDERS: ATTEND Family Medicine
DX: D50.9 Iron deficiency anemia, unspecified (principal)

== ENCOUNTER 2020-01-29 08:00 | Day surgery (SDC) | payer OTHER ==
[2020-01-29] MEDS ORDERED: fentaNYL 100 MCG/2 ML INJECTION (J3010) As Ordered ONE (08:12)
[2020-01-29] MEDS ORDERED: LIDOCAINE 2% 100MG/5ML SDV (FOR ANES.) As Ordered ONE (08:12)
[2020-01-29] MEDS ORDERED: propofoL 200 MG/20 ML VIAL As Ordered ONE (08:12)
--- NOTE | 2020-03-11 11:26 | ROOR ---
Patient Name: Lilia Sterling Procedure Date: 01/29/2020 8:09 AM Date of : 1985 Age: 34 Room: [facility] Gender: Male Note Status: Finalized Procedure: Upper GI endoscopy Indications: Follow-up of acute gastrojejunal ulcer with perforation Providers: José Antonio Lozada MD Referring MD: Herlinda MARAVILLA Requesting Provider: Medicines: Monitored Anesthesia Care Complications: No immediate complications. Procedure: Pre-Anesthesia Assessment: - Prior to the procedure, a History and Physical was performed, and patient medications and allergies were reviewed. The patient is competent. The risks and benefits of the procedure and the sedation options and risks were discussed with the patient. All questions were answered and informed consent was obtained. Patient identification and proposed procedure were verified by the physician, the nurse and the anesthesiologist in the endoscopy suite. Mental Status Examination: alert and oriented. Airway Examination: normal oropharyngeal airway and neck mobility. Respiratory Examination: clear to auscultation. CV Examination: normal. Prophylactic Antibiotics: The patient does not require prophylactic antibiotics. Prior Anticoagulants: The patient has taken no previous anticoagulant or antiplatelet agents. ASA Grade Assessment: II - A patient with mild systemic disease. After reviewing the risks and benefits, the patient was deemed in satisfactory condition to undergo the procedure. The anesthesia plan was to use monitored anesthesia care (MAC). Immediately prior to administration of medications, the patient was re-assessed for adequacy to receive sedatives. The heart rate, respiratory rate, oxygen saturations, blood pressure, adequacy of pulmonary ventilation, and response to care were monitored throughout the procedure. The physical status of the patient was re-assessed after the procedure. The Endoscope was introduced through the mouth, and advanced to the efferent jejunal loop. The upper GI endoscopy was accomplished without difficulty. The patient tolerated the procedure well. Findings: The examined esophagus was normal. A small hiatal hernia was present. Localized mild inflammation characterized by congestion (edema), healing of ulcer site was found at the anastomosis. Biopsies were taken with a cold forceps for Helicobacter pylori testing. Estimated blood loss was minimal. A staple was found at the anastomosis. Impression: - Normal esophagus. - Small hiatal hernia. - Chronic gastritis. Biopsied. - A staple was found in the stomach. Recommendation: - Discharge patient to home (ambulatory). - Use Protonix (pantoprazole) 40 mg PO daily for 1 year. José Antonio Lozada MD José Antonio Lozada MD 01/29/2020 8:34:30 AM Electronically signed by José Antonio Lozada MD Number of Addenda: 0 Note Initiated On: 01/29/2020 8:09 AM Estimated Blood Loss: Estimated blood loss was minimal.
== END 2020-01-29 09:03 | disposition home or self-care (01) ==
LOC: M OPP 08:00
PROVIDERS: ATTEND Surgery
DX: K44.9 Diaphragmatic hernia without obstruction or gangrene (principal); K29.50 Unspecified chronic gastritis without bleeding; K28.1 Acute gastrojejunal ulcer with perforation; T18.2XXA Foreign body in stomach, initial encounter
CPT/HCPCS: 43239; 88305; J3010; U0002

== ENCOUNTER 2020-08-11 17:17 | Emergency (ER) | payer OTHER ==
[~2020-08-11] VITALS: Ht 167.6 cm; Wt 93.0 kg
[2020-08-11] MEDS ORDERED: VENL150C43 (17:25)
[2020-08-11] MEDS ORDERED: PANT40TA29 (17:25)
--- NOTE | 2020-08-11 18:43 | REPVR ---
PROCEDURE INFORMATION: Exam: US Scrotum Exam date and time: 08/11/2020 6:27 PM Age: 35 years old Clinical indication: Scrotum pain; Additional info: Testicular pain TECHNIQUE: Imaging protocol: Real-time ultrasound of the scrotum and contents with color Doppler and image documentation. COMPARISON: No relevant prior studies available. FINDINGS: Right testicle: measures 3.1 cm in length by 1.9 cm in thickness. There is uniform echogenicity of the right testicle. There is also vascular flow and no evidence of torsion of the right testicle. There is a dominant cyst of the head of the epididymis on the right measuring approximately 7 mm. There are prominent vessels of the spermatic cord on the right consistent with moderate varices. Left testicle: measures 3.4 cm in length by 1.7 cm in thickness. There is uniform echogenicity. There is also vascular flow of the left testicle with no evidence of torsion. The head of the epididymis on the left measures approximately 9 mm. IMPRESSION: 1. 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 2. 7 cm cyst of the head of the epididymis on the right. Electronically signed by: Ever Hagen On 08/11/2020 18:43:33 PM
[2020-08-11] MEDS ORDERED: NAPROXEN 250 MG TAB PO ONE (19:45)
[2020-08-11 19:46] LABS: CHLAMYDIA DNA AMPLIFICATION NEGATIVE (NEGATIVE); GC DNA AMPLIFICATION NEGATIVE (NEGATIVE)
[2020-08-11 20:07] VITALS: BP 121/82
--- NOTE | 2020-08-13 22:30 | ED PDOC ---
Post-Departure Follow-Up dr britton faxed formal report of scrotal us for Debra Freire lg, MD Aug 13, 2020 22:30
== END 2020-08-11 20:09 | disposition home or self-care (01) ==
LOC: M ED 17:17
DX: I86.1 Scrotal varices (principal); Z98.84 Bariatric surgery status; Z91.030 Bee allergy status

== ENCOUNTER → 2023-06-07 | Outpatient (REF) | payer OTHER ==
[~2023-06-07] MED LIST changes: +ALBU8.5H; +FOLI1TAB11 PO; +LEXA1TAB2 PO; +MULT-90 PO; +PANT40TA29; +VENL150C43; +VITA200010 PO
== END ==
LOC: M LAB REF 21:35
PROVIDERS: ATTEND Physician Assistant Medical
DX: R05.9 Cough, unspecified (principal)